=== PATIENT | male | born 1995 | race African-American/Black ===

== ENCOUNTER 2017-07-03 11:02 | Day surgery (SDC) | payer OTHER ==
[~2017-07-03] VITALS: Ht 188 cm; Wt 97.5 kg
[~2017-07-03 11:02] MED LIST: EFFE37.527 PO
[2017-07-03] MEDS ORDERED: LIDOCAINE 1% MDV 20ML VIAL SQ ONE (11:15)
[2017-07-03] MEDS ORDERED: dexameTHASONE 4 MG/ML 1ML VIAL (J1100) IV ONE (11:15)
[2017-07-03] MEDS ORDERED: LR 1,000 ML IV ONE (11:15)
[2017-07-03] MEDS ORDERED: MIDAZOLAM INJ 2 MG/2 ML VIAL (J2250) As Ordered ONE (12:45)
[2017-07-03] MEDS ORDERED: fentaNYL 100 MCG/2 ML INJECTION (J3010) As Ordered ONE ×2 (12:45→13:28)
[2017-07-03] MEDS ORDERED: SCOPOLAMINE 1.5 MG TRANSDERMAL As Ordered ONE (13:01)
[2017-07-03] MEDS ORDERED: SCOPOLAMINE 1.5 MG TRANSDERMAL TOP ONE (13:15)
[2017-07-03] MEDS ORDERED: ROCURONIUM BROMIDE 50 MG/5 ML VIAL/SYRINGE As Ordered ONE (13:37)
[2017-07-03] MEDS ORDERED: GLYCOPYRROLATE INJ 0.2 MG/ML 2 ML VIAL As Ordered ONE (13:37)
[2017-07-03] MEDS ORDERED: LIDOCAINE 2% INJ 100 MG/5 ML SDV (FOR ANES.) As Ordered ONE (13:37)
[2017-07-03] MEDS ORDERED: PROPOFOL 200 MG/20 ML VIAL As Ordered ONE (13:37)
[2017-07-03] MEDS ORDERED: dexameTHASONE 4 MG/ML 1ML VIAL (J1100) As Ordered ONE (13:37)
[2017-07-03] MEDS ORDERED: ONDANSETRON 4MG/2ML VIAL (J2405) As Ordered ONE (13:37)
[2017-07-03] MEDS ORDERED: NEOSTIGMINE 1MG/ML 5 ML SYRINGE (J2710) As Ordered ONE (13:37)
[2017-07-03] MEDS ORDERED: PERCOCET 5MG/325MG TAB As Ordered ONE (14:13)
[2017-07-03] MEDS ORDERED: LR 1,000 ML IV SCH ×2 (14:30)
[2017-07-03] MEDS ORDERED: fentaNYL 100 MCG/2 ML INJECTION (J3010) IV PRN (14:30)
[2017-07-03] MEDS ORDERED: ONDANSETRON 4MG/2ML VIAL (J2405) IV PRN (14:30)
[2017-07-03] MEDS ORDERED: PERCOCET 5MG/325MG TAB PO PRN (14:30)
[2017-07-03 15:15] VITALS: BP 143/79
--- NOTE | 2017-07-10 09:05 | RO ---
DATE OF PROCEDURE: 07/03/2017 PREOPERATIVE DIAGNOSIS: Tonsillar hypertrophy. POSTOPERATIVE DIAGNOSIS: Tonsillar hypertrophy. PROCEDURE: Tonsillectomy. SURGEON: Brandon Larios MD [place]: ANESTHESIA: General. CLINICAL PREAMBLE: This 21-year-old man presented to the office with enlarged tonsils. Physical examination revealed tonsillar hypertrophy. Management options including tonsillectomy have been discussed. The patient understood and consented to the procedure. DESCRIPTION OF PROCEDURE: Patient was identified in preoperative holding and brought to the operating room in stable condition. In supine position on the operating table, patient received general anesthesia followed by orotracheal intubation without incident. Patient was prepped and draped in the usual fashion for the procedure. The Jett-Roel mouth gag was inserted and suspended. The right tonsil was medialized using curved Allis forceps. Mucosal incision was made over the superior pole of the right tonsil using the Coblator wand set at 7 for Coblation. The tonsillar capsule was identified, and dissection was carried out along this plane to excise the right tonsil. The left tonsil was then similarly dissected out. At the end of the procedure, both tonsil beds were free of bleeding. Estimated blood loss was less than 10 mL. No complication was encountered. Sponge and instruments counts were correct at the end of the procedure. General anesthesia was reversed, and patient was extubated and brought to the recovery room in stable condition.
== END 2017-07-03 16:32 | disposition home or self-care (01) ==
LOC: M SDC 11:02
PROVIDERS: ATTEND Otolaryngology
DX: J35.01 Chronic tonsillitis (principal); F84.0 Autistic disorder; F43.10 Post-traumatic stress disorder, unspecified; F32.9 Major depressive disorder, single episode, unspecified; F17.210 Nicotine dependence, cigarettes, uncomplicated; Z79.899 Other long term (current) drug therapy
CPT/HCPCS: 42826; 88302; J1100; J2250; J2405; J2710; J3010

== ENCOUNTER 2017-07-08 17:16 | Emergency (ER) | payer OTHER ==
[~2017-07-08] VITALS: Ht 188 cm; Wt 98.6 kg
--- NOTE | 2017-07-08 17:30 | ED PDOC ---
Post-Departure Follow-Up patient seen by Dr. Chávez upon arrival. Patient was not seen by an ED provider. Dr. Chávez saw the patient and discharged him home. Esme Hankins MD Jul 08, 2017 17:30
[2017-07-08 18:20] VITALS: BP 138/83
--- NOTE | 2017-07-10 19:53 | HPE ---
DATE OF ADMISSION: 07/08/2017 The patient presents to the emergency department with a history of bleeding after tonsillectomy. The patient had tonsillectomy five days prior to being seen on July 08. The patient was seen in the evening in the emergency department. The patient had been bleeding for a number of hours. There was a small amount of bleeding. He had been swallowing blood. He was in no distress. He did have a bit of a sore throat. Otherwise, he was well. On examination he was alert and oriented. Examination revealed nose, mouth and pharynx were normal except that he had a tiny bit of old blood in the base of the tonsil on the right side. No fresh bleeding and he was not spitting up blood. IMPRESSION: The patient had some postoperative tonsillar bleeding. It seemed to have resolved now. No treatment is necessary.
== END 2017-07-08 18:21 | disposition home or self-care (01) ==
LOC: M ED 17:16
DX: R04.1 Hemorrhage from throat (principal); K91.841 Postprocedural hemorrhage of a digestive system organ or structure following other procedure; Z79.899 Other long term (current) drug therapy

== ENCOUNTER 2017-09-27 13:40 | Emergency (ER) | payer OTHER ==
[~2017-09-27] VITALS: Ht 193 cm; Wt 79.1 kg
[2017-09-27 13:41] VITALS: BP 130/73
== END 2017-09-27 14:52 | disposition left against medical advice (07) ==
LOC: M ED 13:40
DX: Z53.29 Procedure and treatment not carried out because of patient's decision for other reasons (principal)